=== PATIENT | male | born 1985 | race Caucasian/White ===

== ENCOUNTER 2021-08-22 02:12 | Emergency (ER) | payer SELFPAY ==
[~2021-08-22 02:12] MED LIST: CIPROFLOXACIN750 MG PO; NORCO 7.5-3251 EACH PO; ZANTAC150 MG PO; ZOFRAN4 MG PO
[2021-08-22] MEDS ORDERED: HYDROCODON-ACE1 EAC4 PO (02:48)
== END 2021-08-22 03:00 | disposition home or self-care (01) ==
LOC: ER1 02:12
DX: S93.402A Sprain of unspecified ligament of left ankle, initial encounter (principal); F17.210 Nicotine dependence, cigarettes, uncomplicated; X58.XXXA Exposure to other specified factors, initial encounter
CPT/HCPCS: 73610; 99283

== ENCOUNTER → 2021-08-28 | Outpatient (CLI) | payer BC ==
[~2021-08-28] MED LIST changes: +HYDROCODON-ACE1 EAC4 PO
== END ==
LOC: RAD 13:47
DX: S90.32XA Contusion of left foot, initial encounter (principal); S90.02XA Contusion of left ankle, initial encounter
CPT/HCPCS: 73610; 73630

== ENCOUNTER → 2021-12-19 | Outpatient (CLI) | payer OTHER | LOC: LAB 03:10 → GENOP 03:10 | DX: Z02.83 Encounter for blood-alcohol and blood-drug test (principal) | CPT/HCPCS: 36415 ==